=== PATIENT | male | born 1960 | race Caucasian/White ===

== ENCOUNTER 2021-12-27 15:07 | Emergency (ER) | payer OTHER, SELFPAY ==
[2021-12-27 15:13] VITALS: BP 151/81; PULSE 90; RESP 16; TEMP 36.2; O2SAT 100
--- NOTE | 2021-12-27 15:49 | ED.URI ---
HPI - URI/Sore Throat General Chief Complaint: Upper Respiratory Infection Stated Complaint: sinus infection Time Seen by Provider: 12/27/21 15:49 Source: patient and RN notes reviewed Mode of arrival: ambulatory Limitations: no limitations History of Present Illness HPI Narrative: 61-year-old male presenting for complaint of sinus pressure and congestion for 2 days. Endorses covid and flu vaccine received 4 days ago. Reports frequent sinus infections and states it feels similar. Denies shortness breath or wheezing, nausea, vomiting, fevers or chills. Took DayQuil yesterday MD elicited complaint: cough Related Data Home Medications Medication Instructions Recorded Confirmed atorvastatin 10 mg tablet 10 mg PO DAILY 12/27/21 12/27/21 omeprazole 40 mg capsule,delayed 40 mg PO DAILY 12/27/21 12/27/21 release Allergies Allergy/AdvReac Type Severity Reaction Status Date / Time No Known Allergies Allergy Verified 12/27/21 15:46 Review of Systems Review of Systems: CONSTITUTIONAL: Denies malaise, chills, sweats, fever EYES: Denies visual changes, redness, or discharge ENT: Reports rhinorrhea, congestion, sinus pain, denies otalgia, sore throat CARDIOVASCULAR: Denies chest pain, palpitations, edema RESPIRATORY: Reports cough, post nasal drainage. Denies dyspnea GASTROINTESTINAL: Denies abdominal pain, nausea, vomiting, diarrhea SKIN: Denies rash or itching MUSCULOSKELETAL: denies myalgia NEUROLOGIC: Denies headache Exam Narrative: GENERAL: well-appearing EYES: PERRLA, conjunctivae clear ENT: Mucous membranes moist. Nasal congestion. TMs pearly chow with dull light reflex bilaterally; no tragal tenderness. Oropharynx erythematous without lesions or exudate, no drooling, no hoarseness, no trismus, uvula midline. NECK: Supple. No lymphadenopathy CHEST: Clear to auscultation, breath sounds equal. No wheezing, rhonchi, rales, or stridor. No respiratory distress, speaks in full sentences. HEART: Regular rate and rhythm. No murmur heard. NEURO: Alert and oriented x3. PSYCH: Normal mood and affect Course Course Emergency Course: Patient is aware of diagnosis, understands and agrees to treatment plan. Anticipatory guidance given. Patient agrees to follow-up as directed and is aware of reasons to seek care at the emergency department. Portions of this record may have been created with voice recognition software Level of Care: Express Care Visit Vital Signs Vital signs: Vital Signs Temperature 97.1 F L 12/27/21 15:13 Pulse Rate 90 12/27/21 15:13 Respiratory Rate 16 12/27/21 15:13 Blood Pressure 151/81 H 12/27/21 15:13 Pulse Oximetry 100 12/27/21 15:13 Oxygen Delivery Room Air 12/27/21 15:13 Temperature 97.1 F L 12/27/21 15:13 Pulse Rate 90 12/27/21 15:13 Respiratory Rate 16 12/27/21 15:13 Blood Pressure 151/81 H 12/27/21 15:13 Pulse Oximetry 100 12/27/21 15:13 Oxygen Delivery Room Air 12/27/21 15:13 reviewed MDM - URI/Sore Throat MDM Narrative Medical decision making narrative: patient declines testing for COVID or flu. Discussed indications for antibiotics to treat sinusitis, patient has had symptoms for 2 days. Advised to contact PCP regarding request for antibiotic. Advised supportive measures and signs/symptoms to go to the ER. Pt is appropriate for outpt treatment and f/u. Differential Diagnosis Differential diagnosis: Likely upper respiratory infection, sinusitis, viral infection and influenza Discharge Plan Discharge Clinical Impression: Upper respiratory infection Patient Disposition: Home, Self-Care Condition: Stable Instructions: Antibiotic Form, Rhinosinusitis (ED) Additional Instructions: Recommend Flonase spray and Zyrtec (or Claritin/Kathrin) saline nasal spray throughout the day as needed over the counter Cough syrup may cause drowsiness; avoid driving or take it at night time. Tylenol every 8 hours as needed for pain Sympto
== END 2021-12-27 16:00 | disposition home or self-care (01) ==
PROVIDERS: Emergency Provider Nurse Practitioner Family; PCP Internal Medicine
DX: J06.9 Acute upper respiratory infection, unspecified (principal)
CPT/HCPCS: 99213; G0463